=== PATIENT | male | born 1940 ===

== ENCOUNTER 2022-03-16 12:17 | Observation (INO) ==
[2022-03-16 12:55] LABS: Basophils % 0.2 % (0.0-0.8); Eosinophils % 0.4 % (0.00-10.9); Hematocrit 29.2 VOL% (42.0-52.0); Hemoglobin 9.4 GM/DL (14.0-18.0); Immature Granulocytes % 1.5 %; Immature Granulocytes Absolute 0.07 #; Mean Corpuscular HGB Conc 32.2 GM/DL (32-36); Mean Corpuscular Volume 99.7 FL (87-102); Mean Platelet Volume 10.6 FL (9.6-12.0); Monocytes # 0.3 10*3/uL (0.11-0.8); Monocytes % 6.1 % (1.7-12.7); NRBC # 0.04 10*3/uL; Neutrophils % 69.8 % (38.7-73.9); Platelet Count 170 T/CUMM (130-400); Red Blood Count 2.93 MC/CUMM (3.8-5.5); Red Cell Distribution Width 17.6 % (9.3-17.3); White Blood Count 4.6 T/CUMM (4-12)
[2022-03-16 13:21] LABS: Albumin 3.6 G/DL (3.4-5.0); Bilirubin,Total 0.5 MG/DL (0.20-1.00); Calcium 8.1 MG/DL (8.5-10.1); Osmolality,Calculated 282.4 MOS/KG (273-304); Potassium 3.5 MMOL/L (3.5-5.1); Total Protein 6.5 G/DL (6.4-8.2)
[2022-03-16 15:33] LABS: Thyroid Stimulating Hormone 2.09 uIU/ml (0.358-3.74)
[2022-03-16] MEDS ORDERED: ACETAMINOPHEN 325 MG TABLET PO PRN (16:47)
[2022-03-16] MEDS ORDERED: DEXTROSE 10% 250 ML BAG IV PRN (16:47)
[2022-03-16] MEDS ORDERED: GLUCAGON 1 MG VIAL IM PRN (16:47)
[2022-03-16] MEDS ORDERED: ONDANSETRON 4 MG/2 ML VIAL IV PRN (16:47)
[2022-03-16 17:48] LABS: Vitamin B12 > 2000 PG/ML (211-911)
[2022-03-16] MEDS: SODIUM CHLORIDE 0.9% 1,000 ML IV SCH (18:40)
[2022-03-16] MEDS: ALBUTEROL 2.5 MG/3 ML NEB RESP TX SCH (18:53)
[2022-03-16] MEDS: DOXEPIN 25 MG CAPSULE PO SCH (20:32)
[2022-03-16] MEDS: THEOPHYLLINE ER 300 MG TABLET PO SCH (20:32)
[2022-03-16] MEDS: BUDESONIDE/FORMOTEROL 160-4.5 INHALER 6 GM INH SCH (20:33)
[2022-03-16] MEDS ORDERED: ENOXAPARIN 40 MG/0.4 ML SYRINGE SUBCUT SCH (21:00)
[2022-03-16] MEDS ORDERED: predniSONE 20 MG TABLET PO SCH (21:00)
[2022-03-16] MEDS ORDERED: DILTIAZEM 25 MG/5 ML VIAL IV ONE (22:00)
[2022-03-16] MEDS: DILTIAZEM INJ 100 MG in SODIUM CHLORIDE 0.9% 100 ML IV SCH (22:26)
[2022-03-17] MEDS ORDERED: ENOXAPARIN 80 MG/0.8 ML SYRINGE SUBCUT ONE (01:00)
[2022-03-17 05:25] LABS: Basophils % 0.2 % (0.0-0.8); Eosinophils % 0.6 % (0.00-10.9); Hematocrit 26.6 VOL% (42.0-52.0); Hemoglobin 8.6 GM/DL (14.0-18.0); Immature Granulocytes % 2.4 %; Immature Granulocytes Absolute 0.12 #; Lymphocytes # 1.6 10*3/uL (1.4-4.0); Lymphocytes % 31.9 % (21.2-54.2); Mean Corpuscular HGB Conc 32.3 GM/DL (32-36); Mean Corpuscular Volume 100.8 FL (87-102); Mean Platelet Volume 11.1 FL (9.6-12.0); Monocytes # 0.3 10*3/uL (0.11-0.8); Monocytes % 6.5 % (1.7-12.7); NRBC # 0.06 10*3/uL; Neutrophils % 58.4 % (38.7-73.9); Platelet Count 161 T/CUMM (130-400); Red Blood Count 2.64 MC/CUMM (3.8-5.5); Red Cell Distribution Width 17.6 % (9.3-17.3); White Blood Count 4.9 T/CUMM (4-12)
[2022-03-17] MEDS: SODIUM CHLORIDE 0.9% 1,000 ML IV SCH ×3 (05:42→23:20)
[2022-03-17 05:44] LABS: Calcium 8.2 MG/DL (8.5-10.1); Osmolality,Calculated 282.3 MOS/KG (273-304); Potassium 3.3 MMOL/L (3.5-5.1); Risk Ratio 2.93; VLDL Cholesterol 38.2 MG/DL
[2022-03-17] MEDS: ALBUTEROL 2.5 MG/3 ML NEB RESP TX SCH (06:55)
[2022-03-17] MEDS ORDERED: POTASSIUM CHLORIDE 20 MEQ TABLET PO ONE (07:34)
[2022-03-17] MEDS: PANTOPRAZOLE 40 MG TABLET PO SCH (08:13)
[2022-03-17] MEDS: predniSONE 20 MG TABLET PO SCH (08:13)
[2022-03-17] MEDS: MONTELUKAST 10 MG TABLET PO SCH (08:13)
[2022-03-17] MEDS: THEOPHYLLINE ER 300 MG TABLET PO SCH ×2 (08:14→20:53)
[2022-03-17] MEDS: BUDESONIDE/FORMOTEROL 160-4.5 INHALER 6 GM INH SCH ×2 (08:14→20:56)
[2022-03-17] MEDS ORDERED: ALBUTEROL 2.5 MG/3 ML NEB RESP TX PRN (08:27)
[2022-03-17] MEDS: DILTIAZEM CD 180 MG CAPSULE PO SCH (09:10)
[2022-03-17] MEDS ORDERED: POLYETHYLENE GLYCOL POWDER 17 GM PACK PO PRN (10:38)
[2022-03-17] MEDS: BUDESONIDE 0.5 MG/2 ML NEB RESP TX SCH (11:05)
[2022-03-17] MEDS ORDERED: ENOXAPARIN 120 MG/0.8 ML SYRINGE SUBCUT SCH (13:00)
[2022-03-17] MEDS: APIXABAN 2.5 MG TABLET PO SCH (20:53)
[2022-03-17] MEDS: DOXEPIN 25 MG CAPSULE PO SCH (20:54)
[2022-03-17] MEDS: DILTIAZEM INJ 100 MG in SODIUM CHLORIDE 0.9% 100 ML IV SCH (23:20)
[2022-03-18 05:37] LABS: Basophils % 0.4 % (0.0-0.8); Eosinophils % 0.8 % (0.00-10.9); Hematocrit 25.6 VOL% (42.0-52.0); Hemoglobin 8.2 GM/DL (14.0-18.0); Immature Granulocytes % 4.4 %; Immature Granulocytes Absolute 0.22 #; Lymphocytes # 1.4 10*3/uL (1.4-4.0); Lymphocytes % 28.7 % (21.2-54.2); Mean Corpuscular Volume 101.6 FL (87-102); Mean Platelet Volume 10.8 FL (9.6-12.0); Monocytes # 0.4 10*3/uL (0.11-0.8); Monocytes % 8.8 % (1.7-12.7); NRBC # 0.09 10*3/uL; Neutrophils % 56.9 % (38.7-73.9); Platelet Count 138 T/CUMM (130-400); Red Blood Count 2.52 MC/CUMM (3.8-5.5); Red Cell Distribution Width 17.8 % (9.3-17.3)
[2022-03-18 05:53] LABS: Calcium 8.2 MG/DL (8.5-10.1); Osmolality,Calculated 283.1 MOS/KG (273-304); Potassium 3.7 MMOL/L (3.5-5.1)
[2022-03-18] MEDS: SODIUM CHLORIDE 0.9% 1,000 ML IV SCH (06:00)
[2022-03-18] MEDS: BUDESONIDE 0.5 MG/2 ML NEB RESP TX SCH (08:19)
[2022-03-18] MEDS: predniSONE 20 MG TABLET PO SCH (09:56)
[2022-03-18] MEDS: MONTELUKAST 10 MG TABLET PO SCH (09:56)
[2022-03-18] MEDS: THEOPHYLLINE ER 300 MG TABLET PO SCH (09:56)
[2022-03-18] MEDS: APIXABAN 2.5 MG TABLET PO SCH (09:56)
[2022-03-18] MEDS: DILTIAZEM CD 180 MG CAPSULE PO SCH (09:56)
[2022-03-18] MEDS: PANTOPRAZOLE 40 MG TABLET PO SCH (09:56)
[2022-03-18] MEDS: BUDESONIDE/FORMOTEROL 160-4.5 INHALER 6 GM INH SCH (09:58)
[2022-03-18 12:51] VITALS: BP 125/57
== END 2022-03-18 13:42 | disposition home or self-care (01) ==
LOC: N.ED 12:17 → N.EDINP 12:17 → SUATTDRO 16:47 → N.TELES 18:45
PROVIDERS: ADMIT Internal Medicine; ATTEND Internal Medicine

== ENCOUNTER 2022-06-03 14:34 | Inpatient (IN) ==
[2022-06-03] MEDS ORDERED: niCARdipine 25 MG/10 ML VIAL IV ONE (15:07)
[2022-06-03] MEDS ORDERED: DILTIAZEM 100 MG VIAL.ADD IV ONE (15:07)
[2022-06-03] MEDS ORDERED: DILTIAZEM 25 MG/5 ML VIAL IV ONE (15:10)
[2022-06-03] MEDS: DILTIAZEM INJ 100 MG in SODIUM CHLORIDE 0.9% 100 ML IV SCH ×2 (15:17→22:22)
[2022-06-03] MEDS ORDERED: ALBUTEROL/IPRATROPIUM 3 ML NEB RESP TX STA (15:23)
[2022-06-03] MEDS ORDERED: DILTIAZEM 50 MG/10 ML VIAL IV STA (15:33)
[2022-06-03 15:37] LABS: Basophils % 0.3 % (0.0-0.8); Eosinophils % 0.3 % (0.00-10.9); Hematocrit 28.7 VOL% (42.0-52.0); Hemoglobin 9.3 GM/DL (14.0-18.0); Immature Granulocytes % 7.1 %; Immature Granulocytes Absolute 0.44 #; Lymphocytes # 0.8 10*3/uL (1.4-4.0); Lymphocytes % 13.3 % (21.2-54.2); Mean Corpuscular HGB Conc 32.4 GM/DL (32-36); Mean Corpuscular Volume 95.3 FL (87-102); Mean Platelet Volume 10.2 FL (9.6-12.0); Monocytes # 0.6 10*3/uL (0.11-0.8); Monocytes % 9.2 % (1.7-12.7); NRBC # 0.19 10*3/uL; Neutrophils % 69.8 % (38.7-73.9); Platelet Count 247 T/CUMM (130-400); Red Blood Count 3.01 MC/CUMM (3.8-5.5); Red Cell Distribution Width 19.9 % (9.3-17.3); White Blood Count 6.2 T/CUMM (4-12)
[2022-06-03 15:42] LABS: Albumin 3.5 G/DL (3.4-5.0); Bilirubin,Total 0.5 MG/DL (0.20-1.00); Calcium 8.3 MG/DL (8.5-10.1); Osmolality,Calculated 273.1 MOS/KG (273-304); Total Protein 6.9 G/DL (6.4-8.2)
[2022-06-03] MEDS ORDERED: POTASSIUM CHLORIDE 20 MEQ TABLET PO PRN (15:51)
[2022-06-03] MEDS ORDERED: cefTRIAXone 1,000 MG in SODIUM CHLORIDE 0.9% 100 ML IV STA (15:56)
[2022-06-03 16:27] LABS: Band Neutrophils 10 % (0-10); Lymphocytes 13 % (20-55); Myelocytes 1 %; Nucleated Red Blood Cells 2 /100 WBC (0-5); Promyelocytes 1 %; Total Cells Counted 100
[2022-06-03 16:29] LABS: Platelet Estimate Adequate; Polychromasia Slight
[2022-06-03] MEDS ORDERED: ACETAMINOPHEN 325 MG TABLET PO PRN (18:01)
[2022-06-03] MEDS ORDERED: ONDANSETRON 4 MG/2 ML VIAL IV PRN (18:01)
[2022-06-03] MEDS ORDERED: DOCUSATE SODIUM 100 MG CAPSULE PO PRN (18:01)
[2022-06-03] MEDS ORDERED: MORPHINE 2 MG/1 ML SYRINGE IV PRN (18:01)
[2022-06-03] MEDS ORDERED: ALBUTEROL 2.5 MG/3 ML NEB RESP TX PRN (18:05)
[2022-06-03] MEDS: ALBUTEROL/IPRATROPIUM 3 ML NEB RESP TX SCH ×2 (19:00→19:23)
[2022-06-03] MEDS ORDERED: APIXABAN 2.5 MG TABLET PO SCH (21:00)
[2022-06-03] MEDS: THEOPHYLLINE ER 300 MG TABLET PO SCH (21:40)
[2022-06-03] MEDS: IRON (CARBONYL)/VIT C/B12/FA TABLET PO SCH (21:40)
[2022-06-03] MEDS: DOXEPIN 25 MG CAPSULE PO SCH (21:40)
[2022-06-03] MEDS: guaiFENesin/DM ER 600-30 MG TABLET PO SCH (21:40)
[2022-06-03] MEDS: DOXYCYCLINE HYCLATE INJ 100 MG in SODIUM CHLORIDE 0.9% 100 ML IV SCH (21:40)
[2022-06-03] MEDS: DAROLUTAMIDE 300 MG PO SCH (23:48)
[2022-06-04] MEDS: ALBUTEROL/IPRATROPIUM 3 ML NEB RESP TX SCH ×2 (01:52→03:21)
[2022-06-04] MEDS: BUDESONIDE/FORMOTEROL 160-4.5 INHALER 6 GM INH SCH ×3 (02:52→21:34)
[2022-06-04] MEDS: DILTIAZEM INJ 100 MG in SODIUM CHLORIDE 0.9% 100 ML IV SCH ×2 (04:35→15:55)
[2022-06-04 05:00] LABS: Calcium 7.6 MG/DL (8.5-10.1); Osmolality,Calculated 273.7 MOS/KG (273-304); Potassium 2.8 MMOL/L (3.5-5.1)
[2022-06-04 05:09] LABS: Basophils % 0.2 % (0.0-0.8); Eosinophils % 0.2 % (0.00-10.9); Hematocrit 22.9 VOL% (42.0-52.0); Hemoglobin 7.5 GM/DL (14.0-18.0); Immature Granulocytes % 6.3 %; Immature Granulocytes Absolute 0.33 #; Lymphocytes # 0.9 10*3/uL (1.4-4.0); Lymphocytes % 16.5 % (21.2-54.2); Mean Corpuscular HGB Conc 32.8 GM/DL (32-36); Mean Corpuscular Volume 94.6 FL (87-102); Mean Platelet Volume 9.8 FL (9.6-12.0); Monocytes # 0.5 10*3/uL (0.11-0.8); Monocytes % 10.4 % (1.7-12.7); NRBC # 0.08 10*3/uL; Neutrophils % 66.4 % (38.7-73.9); Platelet Count 166 T/CUMM (130-400); Red Blood Count 2.42 MC/CUMM (3.8-5.5); Red Cell Distribution Width 19.8 % (9.3-17.3); White Blood Count 5.2 T/CUMM (4-12)
[2022-06-04 05:09] LABS: Risk Ratio 2.65; Thyroid Stimulating Hormone 1.15 uIU/ml (0.358-3.74); VLDL Cholesterol 25.6 MG/DL
[2022-06-04 05:21] LABS: Band Neutrophils 1 % (0-10); Eosinophils 1 % (0-10); Hypochromia Slight; Lymphocytes 13 % (20-55); Microcytosis Slight; Ovalocytes Slight; Platelet Estimate Adequate; Total Cells Counted 100
[2022-06-04] MEDS ORDERED: POTASSIUM CHLORIDE 20 MEQ TABLET PO ONE (07:42)
[2022-06-04 08:04] LABS: % Iron Saturation 54.6 % (18-50); Ferritin 1535.6 ng/mL (26-388)
[2022-06-04] MEDS: DAROLUTAMIDE 300 MG PO SCH ×2 (09:40→21:33)
[2022-06-04] MEDS: methylPREDNISolone SOD SUC 40 MG/1 ML VIAL IV SCH ×2 (09:45→21:30)
[2022-06-04] MEDS: PANTOPRAZOLE 40 MG TABLET PO SCH (09:51)
[2022-06-04] MEDS: IRON (CARBONYL)/VIT C/B12/FA TABLET PO SCH ×2 (09:52→21:31)
[2022-06-04] MEDS: THEOPHYLLINE ER 300 MG TABLET PO SCH ×2 (09:52→21:30)
[2022-06-04] MEDS: MONTELUKAST 10 MG TABLET PO SCH (09:53)
[2022-06-04] MEDS ORDERED: DILTIAZEM CD 180 MG CAPSULE PO SCH (10:30)
[2022-06-04] MEDS: guaiFENesin/DM ER 600-30 MG TABLET PO SCH ×2 (10:48→21:30)
[2022-06-04] MEDS ORDERED: NON-FORMULARY MEDICATION (Dextromethorphan-Guaifenesin [Mucinex Dm] 60-1,200 mg Tablet Ext PO SCH (11:30)
[2022-06-04] MEDS: DOXYCYCLINE HYCLATE INJ 100 MG in SODIUM CHLORIDE 0.9% 100 ML IV SCH ×2 (13:15→13:19)
[2022-06-04] MEDS: (Fluticasone-Umeclidin-Vilanter [Trelegy Ellipta] 100-62.5-25 mcg INH SCH (13:19)
[2022-06-04] MEDS: LEVALBUTEROL 1.25 MG/3 ML NEB RESP TX SCH ×2 (14:50→19:29)
[2022-06-04] MEDS ORDERED: METOPROLOL TARTRATE 5 MG/5 ML VIAL IV ONE (15:07)
[2022-06-04] MEDS: SODIUM CHLORIDE 0.9% 1,000 ML IV SCH (17:12)
[2022-06-04] MEDS: cefTRIAXone 1,000 MG in SODIUM CHLORIDE 0.9% 100 ML IV SCH (17:16)
[2022-06-04] MEDS: DILTIAZEM CD 180 MG CAPSULE PO SCH (21:31)
[2022-06-04] MEDS: DOXEPIN 25 MG CAPSULE PO SCH (21:31)
[2022-06-05] MEDS: LEVALBUTEROL 1.25 MG/3 ML NEB RESP TX SCH ×5 (00:39→21:22)
[2022-06-05] MEDS: DOXYCYCLINE HYCLATE INJ 100 MG in SODIUM CHLORIDE 0.9% 100 ML IV SCH ×2 (01:47→14:13)
[2022-06-05] MEDS: SODIUM CHLORIDE 0.9% 1,000 ML IV SCH (04:45)
[2022-06-05 06:17] LABS: Basophils % 0.4 % (0.0-0.8); Eosinophils % 0.1 % (0.00-10.9); Hematocrit 29.3 VOL% (42.0-52.0); Immature Granulocytes % 10.7 %; Immature Granulocytes Absolute 0.97 #; Lymphocytes # 1.6 10*3/uL (1.4-4.0); Lymphocytes % 17.1 % (21.2-54.2); Mean Corpuscular HGB Conc 30.7 GM/DL (32-36); Mean Corpuscular Volume 98.7 FL (87-102); Mean Platelet Volume 9.6 FL (9.6-12.0); Monocytes # 0.5 10*3/uL (0.11-0.8); Monocytes % 5.4 % (1.7-12.7); NRBC # 0.08 10*3/uL; Neutrophils % 66.3 % (38.7-73.9); Platelet Count 200 T/CUMM (130-400); Red Blood Count 2.97 MC/CUMM (3.8-5.5); Red Cell Distribution Width 18.6 % (9.3-17.3); White Blood Count 9.1 T/CUMM (4-12)
[2022-06-05 06:37] LABS: Calcium 8.5 MG/DL (8.5-10.1); Potassium 3.7 MMOL/L (3.5-5.1)
[2022-06-05 06:53] LABS: Band Neutrophils 2 % (0-10); Lymphocytes 11 % (20-55); Platelet Estimate Adequate; Total Cells Counted 100
[2022-06-05 06:54] LABS: Hypochromia Slight
[2022-06-05] MEDS: DILTIAZEM CD 180 MG CAPSULE PO SCH (09:40)
[2022-06-05] MEDS: PANTOPRAZOLE 40 MG TABLET PO SCH (09:40)
[2022-06-05] MEDS: MONTELUKAST 10 MG TABLET PO SCH (09:40)
[2022-06-05] MEDS: methylPREDNISolone SOD SUC 40 MG/1 ML VIAL IV SCH ×2 (09:41→17:11)
[2022-06-05] MEDS: IRON (CARBONYL)/VIT C/B12/FA TABLET PO SCH ×2 (09:41→20:52)
[2022-06-05] MEDS: DAROLUTAMIDE 300 MG PO SCH ×2 (09:54→20:53)
[2022-06-05] MEDS: ACETYLCYSTEINE 20% 800 MG/4 ML VIAL RESP TX SCH ×2 (09:54→15:05)
[2022-06-05] MEDS: (Fluticasone-Umeclidin-Vilanter [Trelegy Ellipta] 100-62.5-25 mcg INH SCH (09:54)
[2022-06-05] MEDS ORDERED: DILTIAZEM CD 180 MG CAPSULE PO ONE (10:01)
[2022-06-05] MEDS: BUDESONIDE/FORMOTEROL 160-4.5 INHALER 6 GM INH SCH ×2 (10:08→21:00)
[2022-06-05] MEDS: guaiFENesin/DM ER 600-30 MG TABLET PO SCH ×2 (10:08→20:52)
[2022-06-05] MEDS ORDERED: DILTIAZEM CD 120 MG CAPSULE PO ONE (11:00)
[2022-06-05] MEDS: NEBIVOLOL 5 MG TABLET PO SCH (14:13)
[2022-06-05] MEDS: cefTRIAXone 1,000 MG in SODIUM CHLORIDE 0.9% 100 ML IV SCH (15:33)
[2022-06-05] MEDS: DILTIAZEM INJ 100 MG in SODIUM CHLORIDE 0.9% 100 ML IV SCH (15:49)
[2022-06-05] MEDS: DOXEPIN 25 MG CAPSULE PO SCH (20:52)
[2022-06-05] MEDS: ATORVASTATIN 40 MG TABLET PO SCH (20:52)
[2022-06-05] MEDS: DILTIAZEM CD 240 MG CAPSULE PO SCH (20:52)
[2022-06-06] MEDS: LEVALBUTEROL 1.25 MG/3 ML NEB RESP TX SCH ×4 (00:01→19:42)
[2022-06-06] MEDS: ACETYLCYSTEINE 20% 800 MG/4 ML VIAL RESP TX SCH ×3 (00:01→12:30)
[2022-06-06] MEDS: DOXYCYCLINE HYCLATE INJ 100 MG in SODIUM CHLORIDE 0.9% 100 ML IV SCH ×2 (00:52→13:45)
[2022-06-06] MEDS: methylPREDNISolone SOD SUC 40 MG/1 ML VIAL IV SCH ×3 (00:53→16:57)
[2022-06-06 05:20] LABS: Basophils % 0.1 % (0.0-0.8); Hematocrit 24.2 VOL% (42.0-52.0); Immature Granulocytes % 8.3 %; Immature Granulocytes Absolute 0.65 #; Lymphocytes # 0.7 10*3/uL (1.4-4.0); Lymphocytes % 9.2 % (21.2-54.2); Mean Corpuscular HGB Conc 33.1 GM/DL (32-36); Mean Corpuscular Volume 95.7 FL (87-102); Mean Platelet Volume 10.1 FL (9.6-12.0); Monocytes # 0.6 10*3/uL (0.11-0.8); Monocytes % 7.1 % (1.7-12.7); NRBC # 0.07 10*3/uL; Neutrophils % 75.3 % (38.7-73.9); Platelet Count 171 T/CUMM (130-400); Red Blood Count 2.53 MC/CUMM (3.8-5.5); Red Cell Distribution Width 19.1 % (9.3-17.3); White Blood Count 7.8 T/CUMM (4-12)
[2022-06-06 05:23] LABS: Calcium 8.2 MG/DL (8.5-10.1); Osmolality,Calculated 283.7 MOS/KG (273-304); Potassium 3.6 MMOL/L (3.5-5.1)
[2022-06-06 06:40] LABS: Lymphocytes 10 % (20-55); Nucleated Red Blood Cells 2 /100 WBC (0-5); Total Cells Counted 100
[2022-06-06 06:41] LABS: Microcytosis 1+; Ovalocytes Slight
[2022-06-06 06:42] LABS: Platelet Estimate Adequate; Tear Drop Cells Slight
[2022-06-06] MEDS: DILTIAZEM CD 240 MG CAPSULE PO SCH ×2 (08:42→20:41)
[2022-06-06] MEDS: MONTELUKAST 10 MG TABLET PO SCH (08:42)
[2022-06-06] MEDS: guaiFENesin/DM ER 600-30 MG TABLET PO SCH ×2 (08:42→20:42)
[2022-06-06] MEDS: NEBIVOLOL 5 MG TABLET PO SCH (08:42)
[2022-06-06] MEDS: PANTOPRAZOLE 40 MG TABLET PO SCH (08:43)
[2022-06-06] MEDS: BUDESONIDE/FORMOTEROL 160-4.5 INHALER 6 GM INH SCH ×2 (08:43→20:42)
[2022-06-06] MEDS: IRON (CARBONYL)/VIT C/B12/FA TABLET PO SCH ×2 (08:43→20:42)
[2022-06-06] MEDS: DAROLUTAMIDE 300 MG PO SCH ×2 (08:44→20:42)
[2022-06-06] MEDS: (Fluticasone-Umeclidin-Vilanter [Trelegy Ellipta] 100-62.5-25 mcg INH SCH (14:23)
[2022-06-06] MEDS: cefTRIAXone 1,000 MG in SODIUM CHLORIDE 0.9% 100 ML IV SCH (14:42)
[2022-06-06] MEDS: DILTIAZEM INJ 100 MG in SODIUM CHLORIDE 0.9% 100 ML IV SCH (14:43)
[2022-06-06] MEDS: ATORVASTATIN 40 MG TABLET PO SCH (20:42)
[2022-06-06] MEDS: DOXEPIN 25 MG CAPSULE PO SCH (20:42)
[2022-06-07] MEDS: DOXYCYCLINE HYCLATE INJ 100 MG in SODIUM CHLORIDE 0.9% 100 ML IV SCH ×2 (00:32→14:00)
[2022-06-07] MEDS: ACETYLCYSTEINE 20% 800 MG/4 ML VIAL RESP TX SCH ×5 (00:32→23:05)
[2022-06-07] MEDS: LEVALBUTEROL 1.25 MG/3 ML NEB RESP TX SCH ×5 (00:33→19:34)
[2022-06-07] MEDS: methylPREDNISolone SOD SUC 40 MG/1 ML VIAL IV SCH ×3 (00:34→21:03)
[2022-06-07 05:04] LABS: Basophils % 0.3 % (0.0-0.8); Hematocrit 23.5 VOL% (42.0-52.0); Hemoglobin 7.4 GM/DL (14.0-18.0); Immature Granulocytes % 6.8 %; Immature Granulocytes Absolute 0.66 #; Lymphocytes # 0.8 10*3/uL (1.4-4.0); Lymphocytes % 7.7 % (21.2-54.2); Mean Corpuscular HGB Conc 31.5 GM/DL (32-36); Mean Corpuscular Volume 98.3 FL (87-102); Mean Platelet Volume 10.3 FL (9.6-12.0); Monocytes # 0.7 10*3/uL (0.11-0.8); Monocytes % 6.9 % (1.7-12.7); NRBC # 0.16 10*3/uL; Neutrophils % 78.3 % (38.7-73.9); Platelet Count 162 T/CUMM (130-400); Red Blood Count 2.39 MC/CUMM (3.8-5.5); Red Cell Distribution Width 19.4 % (9.3-17.3); White Blood Count 9.7 T/CUMM (4-12)
[2022-06-07 05:17] LABS: Calcium 8.4 MG/DL (8.5-10.1); Osmolality,Calculated 289.4 MOS/KG (273-304)
[2022-06-07 05:58] LABS: Anisocytosis 1+; Band Neutrophils 13 % (0-10); Lymphocytes 9 % (20-55); Macrocytosis Slight; Metamyelocytes 2 %; Nucleated Red Blood Cells 6 /100 WBC (0-5); Platelet Estimate Normal; Tear Drop Cells Few; Total Cells Counted 100
[2022-06-07] MEDS: DILTIAZEM CD 240 MG CAPSULE PO SCH ×2 (09:45→20:53)
[2022-06-07] MEDS: MONTELUKAST 10 MG TABLET PO SCH (09:46)
[2022-06-07] MEDS: NEBIVOLOL 5 MG TABLET PO SCH (09:46)
[2022-06-07] MEDS: guaiFENesin/DM ER 600-30 MG TABLET PO SCH ×2 (09:46→20:52)
[2022-06-07] MEDS: IRON (CARBONYL)/VIT C/B12/FA TABLET PO SCH ×2 (09:46→20:53)
[2022-06-07] MEDS: PANTOPRAZOLE 40 MG TABLET PO SCH (09:46)
[2022-06-07] MEDS: DAROLUTAMIDE 300 MG PO SCH ×2 (09:48→20:53)
[2022-06-07] MEDS: BUDESONIDE/FORMOTEROL 160-4.5 INHALER 6 GM INH SCH (09:48)
[2022-06-07] MEDS: (Fluticasone-Umeclidin-Vilanter [Trelegy Ellipta] 100-62.5-25 mcg INH SCH (09:50)
[2022-06-07] MEDS: THEOPHYLLINE ER 300 MG TABLET PO SCH ×4 (12:31→12:45)
[2022-06-07] MEDS: DILTIAZEM INJ 100 MG in SODIUM CHLORIDE 0.9% 100 ML IV SCH (15:14)
[2022-06-07] MEDS: cefTRIAXone 1,000 MG in SODIUM CHLORIDE 0.9% 100 ML IV SCH (15:21)
[2022-06-07] MEDS: DOXEPIN 25 MG CAPSULE PO SCH (20:52)
[2022-06-07] MEDS: ATORVASTATIN 40 MG TABLET PO SCH (20:53)
[2022-06-07] MEDS: MELATONIN 3 MG TABLET PO PRN (20:53)
[2022-06-08] MEDS: LEVALBUTEROL 1.25 MG/3 ML NEB RESP TX SCH ×4 (00:05→19:28)
[2022-06-08] MEDS: DOXYCYCLINE HYCLATE INJ 100 MG in SODIUM CHLORIDE 0.9% 100 ML IV SCH ×2 (00:39→14:53)
[2022-06-08 04:59] LABS: Basophils % 0.3 % (0.0-0.8); Hematocrit 22.5 VOL% (42.0-52.0); Hemoglobin 7.2 GM/DL (14.0-18.0); Immature Granulocytes % 4.7 %; Immature Granulocytes Absolute 0.52 #; Lymphocytes # 0.8 10*3/uL (1.4-4.0); Lymphocytes % 7.2 % (21.2-54.2); Mean Corpuscular Volume 96.6 FL (87-102); Mean Platelet Volume 10.3 FL (9.6-12.0); Monocytes # 0.6 10*3/uL (0.11-0.8); Monocytes % 5.8 % (1.7-12.7); NRBC # 0.34 10*3/uL; Platelet Count 134 T/CUMM (130-400); Red Blood Count 2.33 MC/CUMM (3.8-5.5); Red Cell Distribution Width 19.6 % (9.3-17.3)
[2022-06-08 05:20] LABS: Calcium 7.8 MG/DL (8.5-10.1); Osmolality,Calculated 288.4 MOS/KG (273-304); Potassium 4.2 MMOL/L (3.5-5.1)
[2022-06-08 05:27] LABS: Hypochromia 1+; Lymphocytes 6 % (20-55); Microcytosis Slight; Nucleated Red Blood Cells 8 /100 WBC (0-5); Platelet Estimate Normal; Total Cells Counted 100
[2022-06-08] MEDS: ACETYLCYSTEINE 20% 800 MG/4 ML VIAL RESP TX SCH ×3 (06:55→19:52)
[2022-06-08] MEDS: IRON (CARBONYL)/VIT C/B12/FA TABLET PO SCH ×2 (09:14→21:33)
[2022-06-08] MEDS: PANTOPRAZOLE 40 MG TABLET PO SCH (09:14)
[2022-06-08] MEDS: NEBIVOLOL 5 MG TABLET PO SCH (09:14)
[2022-06-08] MEDS: guaiFENesin/DM ER 600-30 MG TABLET PO SCH ×2 (09:14→21:34)
[2022-06-08] MEDS: MONTELUKAST 10 MG TABLET PO SCH (09:14)
[2022-06-08] MEDS: DILTIAZEM CD 240 MG CAPSULE PO SCH ×2 (09:14→21:34)
[2022-06-08] MEDS: BUDESONIDE/FORMOTEROL 160-4.5 INHALER 6 GM INH SCH ×3 (09:15→21:35)
[2022-06-08] MEDS: (Fluticasone-Umeclidin-Vilanter [Trelegy Ellipta] 100-62.5-25 mcg INH SCH (09:16)
[2022-06-08] MEDS: methylPREDNISolone SOD SUC 40 MG/1 ML VIAL IV SCH ×2 (10:55→21:34)
[2022-06-08] MEDS: DAROLUTAMIDE 300 MG PO SCH ×3 (10:57→21:46)
[2022-06-08] MEDS: cefTRIAXone 1,000 MG in SODIUM CHLORIDE 0.9% 100 ML IV SCH (15:55)
[2022-06-08] MEDS: DILTIAZEM INJ 100 MG in SODIUM CHLORIDE 0.9% 100 ML IV SCH (15:56)
[2022-06-08] MEDS: DOXEPIN 25 MG CAPSULE PO SCH (21:34)
[2022-06-08] MEDS: ATORVASTATIN 40 MG TABLET PO SCH (21:34)
[2022-06-09] MEDS: LEVALBUTEROL 1.25 MG/3 ML NEB RESP TX SCH ×4 (00:25→18:07)
[2022-06-09] MEDS: DOXYCYCLINE HYCLATE INJ 100 MG in SODIUM CHLORIDE 0.9% 100 ML IV SCH ×2 (02:44→16:05)
[2022-06-09 05:34] LABS: Basophils % 0.2 % (0.0-0.8); Hematocrit 22.6 VOL% (42.0-52.0); Hemoglobin 7.2 GM/DL (14.0-18.0); Immature Granulocytes % 5.2 %; Immature Granulocytes Absolute 0.59 #; Lymphocytes # 0.8 10*3/uL (1.4-4.0); Lymphocytes % 7.3 % (21.2-54.2); Mean Corpuscular HGB Conc 31.9 GM/DL (32-36); Mean Corpuscular Volume 97.8 FL (87-102); Monocytes # 0.6 10*3/uL (0.11-0.8); Monocytes % 5.2 % (1.7-12.7); NRBC # 0.43 10*3/uL; Neutrophils % 82.1 % (38.7-73.9); Platelet Count 140 T/CUMM (130-400); Red Blood Count 2.31 MC/CUMM (3.8-5.5); Red Cell Distribution Width 19.8 % (9.3-17.3); White Blood Count 11.3 T/CUMM (4-12)
[2022-06-09 05:57] LABS: Hypochromia Slight; Lymphocytes 5 % (20-55); Microcytosis Slight; Nucleated Red Blood Cells 4 /100 WBC (0-5); Ovalocytes Slight; Platelet Estimate Adequate; Total Cells Counted 100
[2022-06-09 06:04] LABS: Calcium 8.7 MG/DL (8.5-10.1); Osmolality,Calculated 288.4 MOS/KG (273-304); Potassium 4.3 MMOL/L (3.5-5.1)
[2022-06-09] MEDS: ACETYLCYSTEINE 20% 800 MG/4 ML VIAL RESP TX SCH ×2 (07:15→14:02)
[2022-06-09] MEDS ORDERED: SODIUM CHLORIDE 0.9% 1,000 ML IV PRN (07:25)
[2022-06-09] MEDS: MONTELUKAST 10 MG TABLET PO SCH (08:46)
[2022-06-09] MEDS: NEBIVOLOL 5 MG TABLET PO SCH (08:46)
[2022-06-09] MEDS: PANTOPRAZOLE 40 MG TABLET PO SCH (08:46)
[2022-06-09] MEDS: DAROLUTAMIDE 300 MG PO SCH ×2 (08:46→21:04)
[2022-06-09] MEDS: IRON (CARBONYL)/VIT C/B12/FA TABLET PO SCH ×2 (08:46→21:01)
[2022-06-09] MEDS: (Fluticasone-Umeclidin-Vilanter [Trelegy Ellipta] 100-62.5-25 mcg INH SCH (08:47)
[2022-06-09] MEDS: DILTIAZEM CD 240 MG CAPSULE PO SCH ×2 (08:47→20:59)
[2022-06-09] MEDS: APIXABAN 2.5 MG TABLET PO SCH ×2 (08:59→21:01)
[2022-06-09] MEDS: guaiFENesin/DM ER 600-30 MG TABLET PO SCH ×2 (08:59→21:33)
[2022-06-09] MEDS: BUDESONIDE/FORMOTEROL 160-4.5 INHALER 6 GM INH SCH ×2 (09:02→21:33)
[2022-06-09 13:13] LABS: Folate 14.75 NG/ML (5.38-24.0); Vitamin B12 > 2000 PG/ML (211-911)
[2022-06-09 17:14] LABS: Hematocrit 27.6 VOL% (42.0-52.0)
[2022-06-09] MEDS: cefTRIAXone 1,000 MG in SODIUM CHLORIDE 0.9% 100 ML IV SCH (17:21)
[2022-06-09] MEDS: MELATONIN 3 MG TABLET PO PRN (21:01)
[2022-06-09] MEDS: DOXEPIN 25 MG CAPSULE PO SCH (21:33)
[2022-06-09] MEDS: ATORVASTATIN 40 MG TABLET PO SCH (21:33)
[2022-06-10] MEDS: LEVALBUTEROL 1.25 MG/3 ML NEB RESP TX SCH ×4 (00:28→19:36)
[2022-06-10] MEDS: ACETYLCYSTEINE 20% 800 MG/4 ML VIAL RESP TX SCH ×3 (00:41→15:00)
[2022-06-10] MEDS: DOXYCYCLINE HYCLATE INJ 100 MG in SODIUM CHLORIDE 0.9% 100 ML IV SCH ×2 (01:36→13:28)
[2022-06-10 05:43] LABS: Basophils # 0.1 10*3/uL (0.0-0.2); Basophils % 0.5 % (0.0-0.8); Eosinophils % 0.2 % (0.00-10.9); Hemoglobin 9.1 GM/DL (14.0-18.0); Immature Granulocytes % 6.5 %; Immature Granulocytes Absolute 0.65 #; Lymphocytes # 0.6 10*3/uL (1.4-4.0); Lymphocytes % 6.4 % (21.2-54.2); Mean Corpuscular HGB Conc 32.5 GM/DL (32-36); Mean Corpuscular Volume 95.2 FL (87-102); Mean Platelet Volume 10.4 FL (9.6-12.0); Monocytes # 0.4 10*3/uL (0.11-0.8); Monocytes % 3.6 % (1.7-12.7); NRBC # 0.52 10*3/uL; Neutrophils % 82.8 % (38.7-73.9); Platelet Count 141 T/CUMM (130-400); Red Blood Count 2.94 MC/CUMM (3.8-5.5); Red Cell Distribution Width 20.1 % (9.3-17.3); White Blood Count 10.1 T/CUMM (4-12)
[2022-06-10 06:05] LABS: Albumin 2.9 G/DL (3.4-5.0); Bilirubin,Total 0.5 MG/DL (0.20-1.00); Calcium 8.7 MG/DL (8.5-10.1); Osmolality,Calculated 286.4 MOS/KG (273-304); Potassium 3.8 MMOL/L (3.5-5.1); Total Protein 5.9 G/DL (6.4-8.2)
[2022-06-10 06:06] LABS: Lymphocytes 2 % (20-55); Nucleated Red Blood Cells 4 /100 WBC (0-5); Platelet Estimate Adequate; Total Cells Counted 100
[2022-06-10 06:07] LABS: Hypochromia Slight; Microcytosis Slight
[2022-06-10] MEDS ORDERED: methylPREDNISolone SOD SUC 125 MG/2 ML VIAL IV ONE (09:14)
[2022-06-10] MEDS: DAROLUTAMIDE 300 MG PO SCH ×2 (09:26→23:19)
[2022-06-10] MEDS: IRON (CARBONYL)/VIT C/B12/FA TABLET PO SCH ×2 (09:27→21:25)
[2022-06-10] MEDS: methylPREDNISolone SOD SUC 40 MG/1 ML VIAL IV SCH (09:27)
[2022-06-10] MEDS: guaiFENesin/DM ER 600-30 MG TABLET PO SCH ×2 (09:27→21:24)
[2022-06-10] MEDS: NEBIVOLOL 5 MG TABLET PO SCH (09:27)
[2022-06-10] MEDS: APIXABAN 2.5 MG TABLET PO SCH ×2 (09:28→21:26)
[2022-06-10] MEDS: DILTIAZEM CD 240 MG CAPSULE PO SCH ×2 (09:29→21:25)
[2022-06-10] MEDS: PANTOPRAZOLE 40 MG TABLET PO SCH (09:29)
[2022-06-10] MEDS: (Fluticasone-Umeclidin-Vilanter [Trelegy Ellipta] 100-62.5-25 mcg INH SCH (09:30)
[2022-06-10] MEDS: MONTELUKAST 10 MG TABLET PO SCH (09:30)
[2022-06-10] MEDS: BUDESONIDE/FORMOTEROL 160-4.5 INHALER 6 GM INH SCH ×2 (09:30→21:26)
[2022-06-10] MEDS: cefTRIAXone 1,000 MG in SODIUM CHLORIDE 0.9% 100 ML IV SCH (15:48)
[2022-06-10] MEDS: MELATONIN 3 MG TABLET PO PRN (21:24)
[2022-06-10] MEDS: DOXEPIN 25 MG CAPSULE PO SCH (21:24)
[2022-06-10] MEDS: ATORVASTATIN 40 MG TABLET PO SCH (21:25)
[2022-06-11] MEDS: ACETYLCYSTEINE 20% 800 MG/4 ML VIAL RESP TX SCH ×3 (00:21→14:37)
[2022-06-11] MEDS: LEVALBUTEROL 1.25 MG/3 ML NEB RESP TX SCH ×4 (00:21→19:12)
[2022-06-11] MEDS: DOXYCYCLINE HYCLATE INJ 100 MG in SODIUM CHLORIDE 0.9% 100 ML IV SCH (01:35)
[2022-06-11 06:19] LABS: Albumin 2.7 G/DL (3.4-5.0); Bilirubin,Total 0.4 MG/DL (0.20-1.00); Calcium 8.1 MG/DL (8.5-10.1); Osmolality,Calculated 284.7 MOS/KG (273-304); Total Protein 5.4 G/DL (6.4-8.2)
[2022-06-11 07:19] LABS: Basophils % 0.1 % (0.0-0.8); Hematocrit 26.5 VOL% (42.0-52.0); Hemoglobin 8.5 GM/DL (14.0-18.0); Immature Granulocytes % 6.8 %; Immature Granulocytes Absolute 0.65 #; Lymphocytes # 0.5 10*3/uL (1.4-4.0); Lymphocytes % 4.7 % (21.2-54.2); Mean Corpuscular HGB Conc 32.1 GM/DL (32-36); Mean Corpuscular Volume 96.4 FL (87-102); Mean Platelet Volume 10.4 FL (9.6-12.0); Monocytes # 0.4 10*3/uL (0.11-0.8); NRBC # 0.17 10*3/uL; Neutrophils % 84.4 % (38.7-73.9); Platelet Count 125 T/CUMM (130-400); Red Blood Count 2.75 MC/CUMM (3.8-5.5); Red Cell Distribution Width 19.9 % (9.3-17.3); White Blood Count 9.6 T/CUMM (4-12)
[2022-06-11 07:51] LABS: Anisocytosis 1+; Band Neutrophils 7 % (0-10); Eosinophils 1 % (0-10); Lymphocytes 11 % (20-55); Metamyelocytes 2 %; Nucleated Red Blood Cells 1 /100 WBC (0-5); Platelet Estimate Adequate; Total Cells Counted 100
[2022-06-11 07:52] LABS: Ovalocytes Few
[2022-06-11] MEDS: (Fluticasone-Umeclidin-Vilanter [Trelegy Ellipta] 100-62.5-25 mcg INH SCH (08:52)
[2022-06-11] MEDS: methylPREDNISolone SOD SUC 40 MG/1 ML VIAL IV SCH (09:15)
[2022-06-11] MEDS: APIXABAN 2.5 MG TABLET PO SCH ×2 (09:16→20:17)
[2022-06-11] MEDS: MONTELUKAST 10 MG TABLET PO SCH (09:16)
[2022-06-11] MEDS: PANTOPRAZOLE 40 MG TABLET PO SCH (09:19)
[2022-06-11] MEDS: guaiFENesin/DM ER 600-30 MG TABLET PO SCH ×2 (09:19→20:17)
[2022-06-11] MEDS: IRON (CARBONYL)/VIT C/B12/FA TABLET PO SCH ×2 (09:19→20:17)
[2022-06-11] MEDS: NEBIVOLOL 5 MG TABLET PO SCH (09:19)
[2022-06-11] MEDS: DILTIAZEM CD 240 MG CAPSULE PO SCH ×2 (09:19→20:17)
[2022-06-11] MEDS: BUDESONIDE/FORMOTEROL 160-4.5 INHALER 6 GM INH SCH ×2 (09:20→20:17)
[2022-06-11] MEDS: DAROLUTAMIDE 300 MG PO SCH ×2 (09:24→20:17)
[2022-06-11] MEDS: cefTRIAXone 1,000 MG in SODIUM CHLORIDE 0.9% 100 ML IV SCH (15:13)
[2022-06-11] MEDS ORDERED: ALUMINUM/MAGNES/SIMETH MAX STR 30 ML UDCUP PO PRN (18:28)
[2022-06-11] MEDS: MELATONIN 3 MG TABLET PO PRN (20:17)
[2022-06-11] MEDS: ATORVASTATIN 40 MG TABLET PO SCH (20:17)
[2022-06-11] MEDS: DOXEPIN 25 MG CAPSULE PO SCH (20:17)
[2022-06-12] MEDS: ACETYLCYSTEINE 20% 800 MG/4 ML VIAL RESP TX SCH ×2 (00:42→07:20)
[2022-06-12] MEDS: LEVALBUTEROL 1.25 MG/3 ML NEB RESP TX SCH ×2 (00:42→07:20)
[2022-06-12 04:36] LABS: Basophils % 0.2 % (0.0-0.8); Hematocrit 25.4 VOL% (42.0-52.0); Hemoglobin 7.9 GM/DL (14.0-18.0); Immature Granulocytes Absolute 0.59 #; Lymphocytes # 0.6 10*3/uL (1.4-4.0); Mean Corpuscular HGB Conc 31.1 GM/DL (32-36); Mean Corpuscular Volume 96.9 FL (87-102); Mean Platelet Volume 10.5 FL (9.6-12.0); Monocytes # 0.5 10*3/uL (0.11-0.8); Monocytes % 5.4 % (1.7-12.7); NRBC # 0.14 10*3/uL; Neutrophils % 80.4 % (38.7-73.9); Platelet Count 109 T/CUMM (130-400); Red Blood Count 2.62 MC/CUMM (3.8-5.5); Red Cell Distribution Width 19.7 % (9.3-17.3); White Blood Count 8.4 T/CUMM (4-12)
[2022-06-12 04:56] LABS: Albumin 2.7 G/DL (3.4-5.0); Bilirubin,Total 0.4 MG/DL (0.20-1.00); Calcium 8.3 MG/DL (8.5-10.1); Osmolality,Calculated 291.1 MOS/KG (273-304); Potassium 3.9 MMOL/L (3.5-5.1); Total Protein 5.3 G/DL (6.4-8.2)
[2022-06-12 04:58] LABS: Band Neutrophils 1 % (0-10); Hypochromia Slight; Lymphocytes 8 % (20-55); Microcytosis Slight; Nucleated Red Blood Cells 3 /100 WBC (0-5); Total Cells Counted 100
[2022-06-12 08:55] VITALS: BP 120/65
[2022-06-12] MEDS ORDERED: predniSONE 20 MG TABLET PO SCH (09:00)
[2022-06-12] MEDS: NEBIVOLOL 5 MG TABLET PO SCH (09:09)
[2022-06-12] MEDS: guaiFENesin/DM ER 600-30 MG TABLET PO SCH (09:09)
[2022-06-12] MEDS: MONTELUKAST 10 MG TABLET PO SCH (09:09)
[2022-06-12] MEDS: APIXABAN 2.5 MG TABLET PO SCH (09:10)
[2022-06-12] MEDS: IRON (CARBONYL)/VIT C/B12/FA TABLET PO SCH (09:10)
[2022-06-12] MEDS: PANTOPRAZOLE 40 MG TABLET PO SCH (09:10)
[2022-06-12] MEDS: DILTIAZEM CD 240 MG CAPSULE PO SCH (09:10)
[2022-06-12] MEDS: DAROLUTAMIDE 300 MG PO SCH (09:11)
[2022-06-12] MEDS: (Fluticasone-Umeclidin-Vilanter [Trelegy Ellipta] 100-62.5-25 mcg INH SCH (09:11)
[2022-06-12] MEDS: BUDESONIDE/FORMOTEROL 160-4.5 INHALER 6 GM INH SCH (09:12)
== END 2022-06-12 11:35 | disposition home health service (06) | DRG 308 ==
LOC: N.ED 14:34 → N.EDINP 18:01 → SUATTDRO 18:01 → N.TELES 19:47
PROVIDERS: ADMIT Internal Medicine; ATTEND Internal Medicine